=== PATIENT | male | born 1970 | race African-American/Black ===

== ENCOUNTER 2018-03-01 01:33 | Emergency (ER) | payer OTHER ==
[~2018-03-01] VITALS: Ht 165.1 cm; Wt 97.5 kg
--- NOTE | 2018-03-01 02:41 | Emergency Room Report ---
History of Present Illness General Chief Complaint: Laceration Source: Patient Present Illness HPI 47-year-old male p/w laceration to left knee. sustained when he fell, he has been able to ambulate without issue and has no pain with any movement of his like. no other complaints. Tdap is not up-to-date Allergies: Coded Allergies: No Known Allergies (Unverified , 03/01/18) Patient History Past Medical History: see triage record Past Surgical History: none Pertinent Family History: none Reviewed Nursing Documentation: PMH: Agreed; PSxH: Agreed Nursing Documentation-PMH Past Medical History: No Stated History Review of Systems All Other Systems: negative except mentioned in HPI Physical Exam Vital Signs Date Time Temp Pulse Resp B/P (MAP) Pulse Ox O2 Delivery O2 Flow Rate FiO2 03/01/18 01:39 98.3 94 18 132/74 99 Room Air 98.2 Sp02 EP Interpretation: reviewed, normal General Appearance: normal inspection, well appearing, no apparent distress, alert, GCS 15, non-toxic Head: normocephalic, atraumatic Eyes: bilateral eye normal inspection, bilateral eye PERRL, bilateral eye EOMI ENT: normal ENT inspection Neck: normal inspection Respiratory: normal inspection Cardiovascular #1: normal inspection Cardiovascular #2: 2+ radial (R), 2+ radial (L) Gastrointestinal: normal inspection, soft Genitourinary: no CVA tenderness Musculoskeletal: other - Gaping laceration noted to the lateral knee, about 4 centimeters, however patient has full range of motion of knee and good motor strength without issue no laxity Neurologic: normal inspection, alert, oriented x3, responsive, motor strength/ tone normal, sensory intact, normal gait, speech normal Psychiatric: normal inspection, judgement/insight normal, memory normal Skin: normal inspection, normal color, no rash, warm/dry, well hydrated, normal turgor Procedures Laceration/Wound Repair Laceration/Wound Repair : Consent: Verbal Wound Location: lower extremity Wound's Depth, Shape: superficial Wound Length (cm): 4 Irrigated w/ Saline (ccs): 500 Betadine Prep?: Yes Anesthesia: 1% Lidocaine Volume Anesthetic (ccs): 5 Wound Repaired With: sutures Suture Size/Type: 4:0, nylon Number of Sutures: 11 Deep Layer Suture Size/Type: 4:0, chromic Number Deep Layer Sutures: 3 Sterile Dressing Applied?: Yes Patient Tolerated: Well Complications: None Medical Decision Making Diagnostic Impression: Primary Impression: Knee laceration ER Course 47-year-old male p/w laceration DDX: Laceration, no signs of infection ER course: Laceration repaired, bacitracin with sterile dressing applied. Tdap given. Disposition: Patient will be discharged home. Strict return precautions discussed with patient such as fever, chills, increasing bleeding to site, purulent drainage, rapid swelling or redness to area. Patient verbalizes understanding. Patient instructed to return to ED or their primary care doctor in 14 days for removal of sutures. Patient agrees with plan. Please note that this Emergency Department Report was dictated using [employer]inary medical officer technology software, occasionally this can lead to erroneous entry secondary to interpretation by the dictation equipment Last Vital Signs Date Time Temp Pulse Resp B/P (MAP) Pulse Ox O2 Delivery O2 Flow Rate FiO2 03/01/18 01:39 98.3 94 18 132/74 99 Room Air 98.2 Disposition: HOME, SELF-CARE Condition: Improved Patient Instructions: Laceration Care, Adult Additional Instructions: PLEASE SEE YOUR PCP OR COME BACK TO THE EMERGENCY ROOM IN 14 DAYS FOR SUTURE REMOVAL Jackson Hilton M.D. March 01, 2018 02:41
[2018-03-01] MEDS ORDERED: Tetanus/Diptheria/Pertussis Vaccine 0.5ml Syr IM ONE (02:45)
[2018-03-01 02:48] VITALS: BP 134/78
[2018-03-01 02:49] VITALS: BP 134/78
== END 2018-03-01 02:51 | disposition home or self-care (01) ==
LOC: EMR 01:53
DX: S81.012A Laceration without foreign body, left knee, initial encounter (principal); W19.XXXA Unspecified fall, initial encounter; Y92.9 Unspecified place or not applicable; Z23 Encounter for immunization
CPT/HCPCS: 12032; 90471; 90715; 99283; Z7502; 96372

== ENCOUNTER 2018-03-15 22:57 | Emergency (ER) | payer OTHER ==
[~2018-03-15] VITALS: Ht 167.6 cm; Wt 113.4 kg
[2018-03-15] MEDS ORDERED: METFORMIN HCL850 M1 ORAL (23:17)
[2018-03-15 23:20] VITALS: BP 136/78
--- NOTE | 2018-03-15 23:43 | Emergency Room Report ---
History of Present Illness General Chief Complaint: Wound Recheck/Suture Removal Source: Patient Present Illness HPI Is a 47-year-old male who presents with chief complaint of suture removal. He fell on March 01 and sustained a laceration to his left knee. He was seen here and had sutured done. no Complications since. He came in for suture removal. Allergies: Coded Allergies: No Known Allergies (Unverified , 03/01/18) Patient History Past Medical History: see triage record, old chart reviewed Past Surgical History: other Pertinent Family History: none Social History: Denies: smoking Immunizations: other Reviewed Nursing Documentation: PMH: Agreed; PSxH: Agreed Nursing Documentation-PMH Hx Diabetes: Yes Review of Systems Eye: Denies: eye pain, blurred vision ENT: Denies: ear pain, nose congestion, throat swelling Respiratory: Denies: cough, shortness of breath Cardiovascular: Denies: chest pain, palpitations Gastrointestinal: Denies: abdominal pain, diarrhea, nausea, vomiting Musculoskeletal: Denies: back pain, joint pain Skin: Denies: rash Neurological: Denies: headache, numbness Endocrine: Denies: increased thirst, increased urine Hematologic/Lymphatic: Denies: easy bruising All Other Systems: negative except mentioned in HPI Physical Exam Vital Signs Date Time Temp Pulse Resp B/P (MAP) Pulse Ox O2 Delivery O2 Flow Rate FiO2 03/15/18 23:11 98.6 107 16 131/86 94 Room Air 98.6 vital signs unremarkab Sp02 EP Interpretation: reviewed, normal General Appearance: well appearing, no apparent distress, alert Head: normocephalic, atraumatic Eyes: bilateral eye PERRL, bilateral eye EOMI ENT: hearing grossly normal, normal pharynx Neck: full range of motion, supple, no meningismus Respiratory: chest non-tender, lungs clear, normal breath sounds Cardiovascular #1: regular rate, rhythm, no murmur Gastrointestinal: normal bowel sounds, non tender, no mass, no organomegaly, no bruit, non-distended Musculoskeletal: back normal, gait/station normal, normal range of motion, other - left knee: Suture site clean without evidence of infection. Psychiatric: mood/affect normal Skin: warm/dry Procedures Additional Procedure Procedure Narrative Procedure: Suture removal Indication: Scheduled removal Description: I cleaned the area with chlorhexidine. I remove the suture using a scissor and tweezer. No complication. Patient tolerated procedure without problem. Medical Decision Making Diagnostic Impression: Primary Impression: Encounter for removal of sutures ER Course Patient here for suture removal. No complication. No infection. Last Vital Signs Date Time Temp Pulse Resp B/P (MAP) Pulse Ox O2 Delivery O2 Flow Rate FiO2 03/15/18 23:20 78 18 136/78 96 Room Air 03/15/18 23:11 98.6 98.6 Status: improved Disposition: HOME, SELF-CARE Condition: Stable Referrals: NON PHYSICIAN (PCP) Additional Instructions: follow-up with your DrSteve in 7 days as needed. Return for any concerns. SHAQ BAILEY M.D. Mar 15, 2018 23:43
[2018-03-16 00:10] VITALS: BP 140/75
[2018-03-16 00:15] VITALS: BP 140/75
== END 2018-03-16 00:15 | disposition home or self-care (01) ==
LOC: EMR 23:35
DX: S81.012D Laceration without foreign body, left knee, subsequent encounter (principal); X58.XXXD Exposure to other specified factors, subsequent encounter; Z48.02 Encounter for removal of sutures
CPT/HCPCS: 99282

== ENCOUNTER 2019-03-17 20:38 | Emergency (ER) | payer OTHER ==
[~2019-03-17] VITALS: Ht 165.1 cm; Wt 94.8 kg
[~2019-03-17 20:38] MED LIST: METFORMIN HCL850 M1 ORAL
[2019-03-17 20:50] VITALS: BP 134/89
--- NOTE | 2019-03-17 20:50 | NUR ---
ED Nurse Note: Pt arrived ED from home, c/o right the 5 th finger was injuried and pain with abscess. Pt is A/O X 4. VSS, waing for orders.
--- NOTE | 2019-03-17 21:02 | Emergency Room Report ---
History of Present Illness General Chief Complaint: Pain Source: Patient Present Illness HPI This is a 48-year-old male who is right-hand dominant. He presents with chief complaint of right fifth finger pain. Onset for last 4 days. He had a hangnail that he pulled off. Now swollen and tender. Pain is 8 out of 10. Worse with movement or palpation. Better with rest. No drainage. No fever. Denies any other complaint. Allergies: Coded Allergies: No Known Allergies (Unverified , 03/01/18) Patient History Past Medical History: see triage record, old chart reviewed, DM Past Surgical History: other Pertinent Family History: none Social History: Denies: smoking Immunizations: other Reviewed Nursing Documentation: PMH: Agreed; PSxH: Agreed Nursing Documentation-PMH Past Medical History: No History, Except For Hx Diabetes: Yes - 2 Review of Systems Eye: Denies: eye pain, blurred vision ENT: Denies: ear pain, nose congestion, throat swelling Respiratory: Denies: cough, shortness of breath Cardiovascular: Denies: chest pain, palpitations Gastrointestinal: Denies: abdominal pain, diarrhea, nausea, vomiting Musculoskeletal: Reports: joint pain; Denies: back pain Skin: Denies: rash Neurological: Denies: headache, numbness Endocrine: Denies: increased thirst, increased urine Hematologic/Lymphatic: Denies: easy bruising All Other Systems: negative except mentioned in HPI Physical Exam Vital Signs Date Time Temp Pulse Resp B/P (MAP) Pulse Ox O2 Delivery O2 Flow Rate FiO2 03/17/19 20:44 98.8 74 16 138/91 (107) 97 Room Air Vitals unremarkable Sp02 EP Interpretation: reviewed, normal General Appearance: well appearing, no apparent distress, alert Head: normocephalic, atraumatic Eyes: bilateral eye PERRL, bilateral eye EOMI ENT: hearing grossly normal, normal pharynx Neck: full range of motion, supple, no meningismus Respiratory: chest non-tender, lungs clear, normal breath sounds Cardiovascular #1: regular rate, rhythm, no murmur Gastrointestinal: normal bowel sounds, non tender, no mass, no organomegaly, no bruit, non-distended Musculoskeletal: back normal, gait/station normal, normal range of motion, other - Right fifth finger: Paronychia on the lateral aspect. No felon Psychiatric: mood/affect normal Skin: warm/dry Procedures Incision and Drainage Incision and Drainage : Consent: Verbal Site: Rt 5th finger Blade Size: 11 I & D Procedure: betadine prep Patient Tolerated: Well Complications: None Progress Using an 11 blade scalpel, I ran along the cuticle of the fifth finger. There was small amount of pus expressed. Patient tolerated procedure without any problem. Medical Decision Making Diagnostic Impression: Primary Impression: Paronychia of finger of right hand ER Course Patient with paronychia. no felon. no deep infection,. Last Vital Signs Date Time Temp Pulse Resp B/P (MAP) Pulse Ox O2 Delivery O2 Flow Rate FiO2 03/17/19 20:44 98.8 74 16 138/91 (107) 97 Room Air Status: improved Disposition: HOME, SELF-CARE Condition: Stable Scripts Trimethoprim/Sulfamethoxazole 160/800* (BACTRIM DS TABLET*) 1 Each Tablet 1 TAB ORAL Q12H, #14 TAB 0 Refills Prov: Maxwell Harris MD 03/17/19 Additional Instructions: Keep wound clean. clean first with hydrogen peroxide. Then apply antibiotic ointment. Follow up with your doctor in 7 days for recheck. Return if worse. Maxwell Harris MD Mar 17, 2019 21:02
[2019-03-17] MEDS ORDERED: BACTRIM DS TAB1 EAC1 ORAL (21:13)
[2019-03-17 21:26] VITALS: BP 134/89
--- NOTE | 2019-03-17 23:59 | NUR ---
ER DISCHARGE NOTE: Patient is cleared to be discharged per Dr. Harris. I&D was done by . Pt is aox4 on room air with stable vital signs. Pt was given dc and prescription instructions. Pt was able to verbalize understanding. Pt's id band removed. Pt is able to ambulate with steady gait and took all belongings.
== END 2019-03-17 21:29 | disposition home or self-care (01) ==
LOC: EMR 21:28
DX: L03.011 Cellulitis of right finger (principal); E11.9 Type 2 diabetes mellitus without complications
CPT/HCPCS: 10060; 99282

== ENCOUNTER 2019-05-10 12:11 | Emergency (ER) | payer OTHER ==
[~2019-05-10] VITALS: Ht 170.2 cm; Wt 92.1 kg
[~2019-05-10 12:11] MED LIST changes: +BACTRIM DS TAB1 EAC1 ORAL
[2019-05-10 12:30] VITALS: BP 134/77
--- NOTE | 2019-05-10 12:42 | Emergency Room Report ---
History of Present Illness General Chief Complaint: Lower Back Pain or Injury Source: Patient Present Illness HPI 49-year-old male with history of type 2 diabetes currently controlled with insulin here complaining of 1 day of lower back pain that started after doing some yard work yesterday. Patient denies falling on his back or injuring his back. Patient reports that he was leaning forward working in his yard as he suddenly felt pulled muscle being spastic in the left lower back radiating to the left leg. Patient denies any tingling numbness, saddle paresthesia, urinary or bowel incontinence. Patient reports that his pain is 5 out of 10 localized to lumbar region without any radiation at this time. Has taken Advil with minimal relief.denies urinary frequency, hematuria, pain radiation to the pubic area. Denies history of renal injury. Allergies: Coded Allergies: No Known Allergies (Unverified , 03/01/18) Patient History Past Medical History: see triage record Past Surgical History: unable to obtain Pertinent Family History: none Immunizations: UTD Reviewed Nursing Documentation: PMH: Agreed; PSxH: Agreed Nursing Documentation-PMH Past Medical History: No History, Except For Hx Diabetes: Yes Review of Systems All Other Systems: negative except mentioned in HPI Physical Exam Vital Signs Date Time Temp Pulse Resp B/P (MAP) Pulse Ox O2 Delivery O2 Flow Rate FiO2 05/10/19 12:17 98.6 72 18 134/77 (96) 96 Room Air Sp02 EP Interpretation: reviewed, normal General Appearance: normal inspection, well appearing, no apparent distress, alert Head: normocephalic, atraumatic Eyes: bilateral eye normal inspection, bilateral eye PERRL ENT: normal ENT inspection, hearing grossly normal, normal pharynx, no angioedema Neck: normal inspection, full range of motion, supple, no meningismus Respiratory: normal inspection, chest non-tender, lungs clear, normal breath sounds, no rhonchi, no respiratory distress, no wheezing Cardiovascular #1: normal inspection, normal peripheral pulses, regular rate, rhythm, no gallop, no murmur Gastrointestinal: normal inspection, soft Genitourinary: no CVA tenderness Musculoskeletal: gait/station normal, normal range of motion, non-tender Neurologic: normal inspection, alert, oriented x3 Psychiatric: normal inspection, judgement/insight normal Skin: no rash Lymphatic: normal inspection, no adenopathy Medical Decision Making PA Attestation All diagnoses and treatment plans were reviewed and discussed with my supervising physician Dr. Encarnacion Diagnostic Impression: Primary Impression: Lumbar spine strain ER Course 49-year-old male with history of type 2 diabetes currently controlled with insulin here complaining of 1 day of lower back pain that started after doing some yard work yesterday. Patient denies falling on his back or injuring his back. Patient reports that he was leaning forward working in his yard as he suddenly felt pulled muscle being spastic in the left lower back radiating to the left leg. Patient denies any tingling numbness, saddle paresthesia, urinary or bowel incontinence. Patient reports that his pain is 5 out of 10 localized to lumbar region without any radiation at this time. Has taken Advil with minimal relief.denies urinary frequency, hematuria, pain radiation to the pubic area. Denies history of renal injury. Ddx considered but are not limited to: Lumbar spine sprain, strain, fracture, contusion, neuropathy Vital signs: are WNL, pt. is afebrile H&PE are most consistent with: lumbar spine strain ORDERS: Robaxin, naproxen ER intervention: Toradol 30 mg IM DISCHARGE: At this time pt. is stable for d/c to home. Will provide printed patient care instructions, and any necessary prescriptions. Care plan and follow up instructions have been discussed with the patient prior to discharge. At this time no x-ray is needed as patient did fall or injure his back. Patient has a presentation of muscle spasm and strain. Reports that he feels better after the Toradol injection. Follow-up with a primary care provider. Return to emergency room if worsening symptoms. Last Vital Signs Date Time Temp Pulse Resp B/P (MAP) Pulse Ox O2 Delivery O2 Flow Rate FiO2 05/10/19 12:17 98.6 72 18 134/77 (96) 96 Room Air Disposition: HOME, SELF-CARE Condition: Stable Scripts Naproxen* (NAPROXEN*) 500 Mg Tablet 500 MG ORAL TWICE A DAY, #21 TAB Prov: Katelyn King 05/10/19 Methocarbamol* (ROBAXIN*) 500 Mg Tablet 500 MG PO TID, #21 TAB 0 Refills Prov: Katelyn King 05/10/19 Patient Instructions: Low Back Sprain With [facility] Additional Instructions: Take medication as directed follow-up with your primary care provider for referral to physical therapy avoid strenuous physical activity if worsening symptoms return to the emergency room at this time no imaging is needed as you did not fall your back Katelyn King May 10, 2019 12:42
[2019-05-10] MEDS ORDERED: NAPROXEN500 M2 ORAL (12:43)
[2019-05-10] MEDS ORDERED: ROBAXIN500 MG PO (12:43)
[2019-05-10] MEDS ORDERED: Ketorolac 30mg Inj IM ONE (12:45)
--- NOTE | 2019-05-10 13:05 | NUR ---
ER DISCHARGE NOTE: Patient is cleared to be discharged per ERMD, pt is aox4, on room air, with stable vital signs. pt was given dc and prescription instructions, pt was able to verbalize understanding, pt id band removed without complications. pt is able to ambulate with can use to steady gait. pt took all belongings.
== END 2019-05-10 13:07 | disposition home or self-care (01) ==
LOC: EMR 13:05
DX: S39.012A Strain of muscle, fascia and tendon of lower back, initial encounter (principal); X50.0XXA Overexertion from strenuous movement or load, initial encounter; Y92.007 Garden or yard of unspecified non-institutional (private) residence as the place of occurrence of the external cause; E11.9 Type 2 diabetes mellitus without complications; Z79.4 Long term (current) use of insulin
CPT/HCPCS: 96372; 99283; J1885

== ENCOUNTER 2020-07-17 17:40 | Emergency (ER) | payer OTHER ==
[~2020-07-17] VITALS: Ht 167.6 cm; Wt 96.6 kg
[~2020-07-17 17:40] MED LIST changes: +NAPROXEN500 M2 ORAL; +ROBAXIN500 MG PO
--- NOTE | 2020-07-17 17:48 | NUR ---
ED Nurse Note: PT walked in to ed for C/O pain and swelling to tip of left ring finger x 2 days. yellowish puss in visible under the skin.
[2020-07-17 17:51] VITALS: BP 135/84
[2020-07-17] MEDS ORDERED: AUGMENTIN 875-1 EAC1 ORAL (18:03)
[2020-07-17] MEDS ORDERED: NAPROXEN500 M1 ORAL (18:03)
--- NOTE | 2020-07-17 18:03 | Emergency Room Report ---
History of Present Illness General Chief Complaint: Upper Extremity Injury Source: Patient Present Illness HPI 50-year-old -Al[place]ian male with history of diabetes ([id number]) [id number] presents with paronychia to the left fourth index finger x3 days. Denies fevers, chills, nausea, vomiting, diarrhea, chest pain, shortness of breath, or other symptoms. He has had a previous injury to the left wrist causing ulnar neuropathy. Denies any new weakness. He had a previous surgery to the left wrist. States he has had paronychia before that required drainage. Unknown Tdap status The patient's symptoms were gradual onset, severity was moderate, duration since 3 days. Quality: aching Past medical history: Diabetes Past surgical history: L wrist surgery Smoking: Denies Alcohol use: Denies Drug use: Denies Review of systems: CONST: No fevers or chills, No night sweats PULMONARY: No productive cough, No shortness of breath CARDIAC: No chest pain, No palpitations GI: No vomiting, No diarrhea , No melena_or_BRBPR : No dysuria, No hematuria, No discharge NEURO: No new_focal_weakness_or_numbness, No confusion, No vision changes 14 point Review of Systems is otherwise negative except per HPI Physical Exam: GENERAL: Awake_alert_ nontoxic, no acute distress Spo2 98% on RA -normal EYES: Extraocular muscles are intact. Conjunctivae clear. Lids without swelling ENT: External nose and ear normal_in_appearance. Oropharynx clear. Head_atraumatic, Moist_oral_mucosa NECK: No JVD. No meningismus. No thyromegaly. Supple. Trachea midline RESP: Normal respiratory effort. Symmetric rise. No stridor. Clear_to_auscultation_No_rales_No_wheezes CARDIAC: Regular rate and regular rhytm. No_significant pedal edema. ABDOMEN: Soft. Nondistended. Nontender_No_rebound_or_guarding. MSK: Normal muscle tone, without rigidity. Extremities without asymmetric deformity or swelling. SKIN: Warm and dry. No visible cyanosis or pallor Left 4th finger paronychia. No felon. No herpetic neyda. No pain with flexion or extension of the fourth digit. Cannot asses flexion and extension at the MCP, PIP and DIP 2/2 to ulnar neuropathy. No pain with passive extension of digit. No cellulitis. NEUROLOGIC: Alert, oriented x3. Motor_and_sensation_grossly_intact. No truncal ataxia. Gait_normal Psych: Normal mood and affect, normal judgment and insight - COORDINATION OF CARE Case was discussed with: Patient Medical Decision Making/Plan: Differential diagnosis: Paronychia versus abscess versus cellulitis versus felon 50-year-old cgeef-fank-fwuyygyb male presents with left fourth finger paronychia. Tdap is up-to-date. Patient received first dose of antibiotic here in the ER. Incision and drainage was done of the paronychia and was successful. No complications. I drained about 2 cc of purulent material from the fourth finger. Knievel signs are negative. No signs of flexor tenosynovitis or os teomyelitis. Recommend close follow-up. Patient was educated to keep close glucose control of his fourth finger expedite healing. Recommend wound check in 2 days. Wound was dressed with bacitracin and gauze. Will DC with Augmentin and pain control. Pertinent results reviewed with the patient. I educated the patient on the current treatment plan including the risks, benefits, and alternatives. I also discussed the extent and limitations of the current evaluation. The patient expressed understanding and agreement with plan. I recommended PMD follow-up within 1-2 days. Also advised that the patient return to the Emergency Departm ent as soon as possible if they experience any new, persistent, or worsening symptoms. Allergies: Coded Allergies: No Known Allergies (Unverified , 03/01/18) COVID-19 Screening Contact w/high risk pt: No Experienced COVID-19 symptoms?: No COVID-19 Testing performed SLIDE DEVELOPER: No Nursing Documentation-PMH Past Medical History: No History, Except For Hx Diabetes: Yes Physical Exam Vital Signs Date Time Temp Pulse Resp B/P (MAP) Pulse Ox O2 Delivery O2 Flow Rate FiO2 07/17/20 17:44 98.1 100 20 135/84 (101) 96 Room Air Sp02 EP Interpretation: reviewed, normal General Appearance: normal inspection Procedures Incision and Drainage Progress Abscess Incision and Drainage with irrigation by me: Location: Left fourth finger paronychia Anesthesia: Local 1% Lidocaine Technique: Irrigated. Disrupted loculations w/ instrumentation Packing: None Complications: Neurovascularly intact post procedure patient tolerated procedure well without complications Medical Decision Making Diagnostic Impression: Primary Impression: Paronychia due to ingrown nail Additional Impression: Diabetes Last Vital Signs Date Time Temp Pulse Resp B/P (MAP) Pulse Ox O2 Delivery O2 Flow Rate FiO2 07/17/20 17:51 98.1 100 20 135/84 96 Room Air Disposition: HOME, SELF-CARE Admit Decision Time: 18:02 Condition: Stable Scripts Naproxen* (NAPROXEN*) 500 Mg Tablet.dr 500 MG ORAL TWICE A DAY for 7 Days, #14 TAB Prov: Gina Anderson D.O. 07/17/20 Amoxicillin/Potassium Clav 875-125* (AUGMENTIN 875-125 TABLET*) 1 Each Tablet 1 TAB ORAL TWICE A DAY, #14 TAB Prov: Gina Anderson D.O. 07/17/20 Referrals: NON PHYSICIAN (PCP) Patient Instructions: Abscess, [id number] Additional Instructions: Instructions for patient/artillery officer: Follow up with your physician in 1-2 days for wound check Keep your diabetes under control Follow-up with your doctor sooner if your condition requires a more timely clinical reevaluation. Return to the emergency department immediately if you feel that your condition is worsening or if you have any new or concerning symptoms. Review your discharge instructions and take any prescriptions given as instructed. [facility] PROVIDES FREE OR LOW-COST HEALTH SERVICES TO PEOPLE WHO CAN SHOW PROOF THAT THEY LIVE IN [facility]. TO FIND MORE CLINICS PARTNERED WITH THE [facility] TO PROVIDE SERVICE, PLEASE CALL . Gina Anderson D.O. Jul 17, 2020 18:03
[2020-07-17] MEDS ORDERED: Tetanus/Diptheria/Pertussis IM ONE (18:15)
[2020-07-17] MEDS ORDERED: Augmentin 875mg Tab ORAL ONE (18:15)
[2020-07-17] MEDS ORDERED: Lidocaine 1% MPF 10mg/ml 5ml INJ ONE (18:15)
--- NOTE | 2020-07-17 18:15 | NUR ---
Note timothyone in EDM - 07/17/20 at 1818 by [email or web address] ED Nurse Note: Pt cleared by health care Provider for discharge. DC instructions/prescription was given and explained to pt and mother. Pt's mother verbalized understanding of teachings. All medical deviecs such as ID band removed. Pt is AAO x4, ambulatory and left with all personal belongings.
--- NOTE | 2020-07-17 18:25 | NUR ---
ED Nurse Note: I&D was performed by LYNNETTE at bedside.
[2020-07-17] MEDS ORDERED: Bacitracin Oint UD TOPIC ONE (18:30)
[2020-07-17 18:31] VITALS: BP 138/88
--- NOTE | 2020-07-17 18:31 | NUR ---
ER DISCHARGE NOTE affected area is cleansed and dressed. Patient is cleared to be discharged per ERMD, pt is aox4, on room air, with stable vital signs. pt was given dc and prescription instructions, pt was able to verbalize understanding, pt id band removed without complications. pt is able to ambulate with steady gait. pt took all belongings.
== END 2020-07-17 18:31 | disposition home or self-care (01) ==
LOC: EMR 17:55
DX: L03.012 Cellulitis of left finger (principal); E11.9 Type 2 diabetes mellitus without complications; Z79.84 Long term (current) use of oral hypoglycemic drugs
CPT/HCPCS: 10140; 90471; 90715; Z7502; 99283